=== PATIENT | female | born 2000 | race Caucasian/White ===

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

== ENCOUNTER → 2019-09-04 | Outpatient (CLI) | payer OTHER ==
[~2019-09-04] VITALS: Ht 175.3 cm; Wt 85.2 kg
[~2019-09-04] MED LIST: NUVARING VAG RING VG
[2019-09-04 12:30] VITALS: BP 137/73; PULSE 61
[2019-09-04 13:15] VITALS: BP 142/91; PULSE 53
== END ==
LOC: COL.RAD 12:00
DX: R59.0 Localized enlarged lymph nodes (principal)